=== PATIENT | male | born 1995 | race American Indian/Alaskan Native ===

== ENCOUNTER 2019-12-04 09:11 | Emergency (ER) | payer OTHER ==
[2019-12-04] MEDS ORDERED: LIDOCAINE-MPF (1%) 10 MG/1 ML VIAL 5 ML INFILTRATI ONE (11:48)
[2019-12-04] MEDS ORDERED: AZITHROMYCIN 250 MG TAB PO ONE (11:48)
--- NOTE | 2019-12-04 11:49 | Emergency Department Report ---
ED General Adult HPI - General Chief complaint: Upper Respiratory Infection Stated complaint: HEADACHE/FATIGUE Time Seen by Provider: 12/04/19 11:32 Source: patient Mode of arrival: Ambulatory Limitations: No Limitations - History of Present Illness Initial comments: 24-year-old male with history of tobacco use presents to the ER today with multiple complaints. Patient states that for the past week he has had a nonproductive cough, mild nasal congestion, intermittent headache to the crown of his head, he is also been having night sweats and chills at night and he also reports dysuria and a rash to his left wrist area. He denies any fever, sore throat, shortness of breath, wheezing, abdominal pain, back pain, hematuria or testicular pain. He does admit that he was sexually active with a new partner about a week ago. Sexual intercourse was unprotected. As far as the rash is concerned he denies any new contacts. He believes it could be related to a spider bite though he did not see or feel of any insect bites. He states the rash is mainly pruritic, denies any pain. He denies any ill contacts. He denies any recent travel out of the country. MD Complaint: Headache, Night sweats, chills, Cough, rash, dysuria -: week(s) (1) Location: head - Related Data Previous Rx's Medication Instructions Recorded Last Taken Type guaiFENesin/DEXTROMETHORPHAN 1 each PO Q12HR PRN #20 tab.er.12h 12/04/19 Unknown Rx [Mucinex Dm ER 600-30 mg Tablet] Allergies Allergy/AdvReac Type Severity Reaction Status Date / Time No Known Allergies Allergy Unverified 12/04/19 09:12 ED Review of Systems ROS: Stated complaint: HEADACHE/FATIGUE Other details as noted in HPI Comment: All other systems reviewed and negative Constitutional: chills, diaphoresis. denies: fever, malaise, weakness ENT: denies: ear pain, throat pain Respiratory: cough. denies: orthopnea, shortness of breath, SOB with exertion, SOB at rest, stridor, wheezing Cardiovascular: denies: chest pain, palpitations Endocrine: no symptoms reported Gastrointestinal: denies: abdominal pain, nausea, vomiting, constipation, hematemesis, hematochezia Genitourinary: dysuria. denies: urgency, frequency, hematuria, discharge, testicular pain, testicular mass Musculoskeletal: denies: back pain, joint swelling, arthralgia, myalgia Skin: rash Neurological: headache. denies: weakness, numbness, paresthesias, confusion, abnormal gait Psychiatric: denies: anxiety, depression ED Past Medical Hx - Past Medical History Previous Medical History?: No - Surgical History Past Surgical History?: No - Social History Smoking Status: Current Every Day Smoker Substance Use Type: Marijuana - Medications Home Medications: Home Medications Medication Instructions Recorded Confirmed Last Taken Type guaiFENesin/DEXTROMETHORPHAN 1 each PO Q12HR PRN #20 tab.er.12h 12/04/19 Unknown Rx [Mucinex Dm ER 600-30 mg Tablet] ED Physical Exam - General Limitations: No Limitations General appearance: alert, in no apparent distress - Head Head exam: Present: atraumatic, normocephalic, normal inspection - Eye Eye exam: Present: normal appearance, PERRL, EOMI Pupils: Present: normal accommodation - ENT ENT exam: Present: normal exam, normal orophraynx, mucous membranes moist, TM's normal bilaterally - Neck Neck exam: Present: normal inspection, full ROM. Absent: meningismus - Respiratory Respiratory exam: Present: normal lung sounds bilaterally. Absent: respiratory distress, wheezes, rales, rhonchi, stridor - Cardiovascular Cardiovascular Exam: Present: regular rate, normal rhythm, normal heart sounds - GI/Abdominal GI/Abdominal exam: Present: soft. Absent: distended, tenderness - Extremities Exam Extremities exam: Present: full ROM - Back Exam Back exam: Present: full ROM - Neurological Exam Neurological exam: Present: alert, oriented X3, CN II-XII intact - Psychiatric Psychiatric exam: Present: normal affect, normal mood, anxious - Skin Skin exam: Present: rash (Mild, erythematous, maculopapular areas noted about the radial aspect of left wrist. Consistent with insect bite. no tenderness to palpation. No streaking redness. No induration or fluctuance.) ED Course Vital Signs 12/04/19 12/04/19 09:13 13:34 Temperature 98.0 F 99.1 F Pulse Rate 62 57 L Respiratory 20 14 Rate Blood Pressure 128/79 113/73 O2 Sat by Pulse 99 97 Oximetry ED Medical Decision Making - Radiology Data Radiology results: report reviewed Critical care attestation.: If time is entered above; I have spent that time in minutes in the direct care of this critically ill patient, excluding procedure time. ED Disposition Clinical Impression: Urethritis, Concern about STD in male without diagnosis, Viral URI with cough Disposition: DC- TO HOME OR SELFCARE Is pt being admited?: No Does the pt Need Aspirin: No Condition: Stable Instructions: Sexually Transmitted Diseases (ED), Nonspecific Urethritis in Men (ED), Insect Bite or Sting (ED), Upper Respiratory Infection (ED) Additional Instructions: I recommend using hydrocortisone cream and some Neosporin from [id number] and you can apply to your rash. I recommend tylenol or motrin from over the counter to help with any bodyaches or pain. I recommend that you notify your sexual partners that they need to be treated for possible STD. Recommend close follow-up with your primary care doctor. Return to the ER if anything changes or worsens. Prescriptions: guaiFENesin/DEXTROMETHORPHAN [Mucinex Dm ER 600-30 mg Tablet] 1 each PO Q12HR PRN #20 tab.er.12h PRN Reason: COUGH/CONGESTION Referrals: HALEY FENG MD [Staff Physician] - 3-5 Days Forms: STI Treatment and Prevention Time of Disposition: 13:22
--- NOTE | 2019-12-04 12:39 | XRay Report ---
CHEST 2 VIEWS INDICATION: Cough. COMPARISON: None FINDINGS: Support devices: None. Heart: Within normal limits. Lungs/pleura: No acute air space or interstitial disease. No pneumothorax. Additional findings: None. IMPRESSION: Normal chest x-ray Signer Name: Chidi Darling Jr, MD Signed: 12/04/2019 12:35 PM Workstation Name: [id number]
[2019-12-04 12:53] LABS: Bilirubin,Urine NEG (Negative); Blood,Urine NEG (Negative); Color,Urine Colorless (Yellow); Mucus,Urine FEW /HPF; Protein,Urine <15 mg/dL mg/dL (Negative); Urobilinogen,Urine < 2.0 mg/dL (<2.0)
[2019-12-04 13:36] VITALS: BP 113/73
--- NOTE | 2019-12-08 16:45 | Emergency Department Report ---
Blank Doc - Documentation Documentation: pts test results are positive for chlamydia pt was appropriately treated in the ED with ceftriaxone and also given azithromycin no need for further actions at this time
== END 2019-12-04 13:40 | disposition home or self-care (01) ==
LOC: ED 09:11
DX: R09.81 Nasal congestion (principal); R51 Headache; N34.2 Other urethritis; J06.9 Acute upper respiratory infection, unspecified; B97.89 Other viral agents as the cause of diseases classified elsewhere; Z20.2 Contact with and (suspected) exposure to infections with a predominantly sexual mode of transmission; F17.200 Nicotine dependence, unspecified, uncomplicated; F12.10 Cannabis abuse, uncomplicated; Z79.899 Other long term (current) drug therapy
CPT/HCPCS: 71046; 81001; 87086; 87591; 96372; 99284; J0696; 99283